=== PATIENT | female | born 1985 | race Caucasian/White ===

== ENCOUNTER 2016-07-15 05:29 | Day surgery (SDC) | payer BC ==
[2016-07-12 07:21] LABS: WBC (NOT ORDERED) (RFLEX) 0 (0-5)
[2016-07-12 08:35] LABS: CALCIUM, SERUM 8.8 MG/DL (8.5-10.4); CHLORIDE, SERUM 107 MMOL/L (96-112); CO2 (CARBON DIOXIDE) 26 MMOL/L (24-34); CREATININE 0.79 MG/DL (0.55-1.02); GFR AFRICAN AMERICAN 115 ML/MIN (>=60); GFR NON AFRICAN AMERICAN 99 ML/MIN (>=60); GLUCOSE, SERUM 78 MG/DL (60-99); POTASSIUM, SERUM 4.1 MMOL/L (3.5-5.3); SODIUM, SERUM 143 MMOL/L (135-148)
[2016-07-12 08:36] LABS: BUN (BLOOD UREA NITROGEN) 13 MG/DL (6-23)
[2016-07-12 10:30] LABS: ASCORBIC ACID (UR NOT ORDER) NEG (NEG); BILIRUBIN, URINE NEGATIVE (NEG); KETONE, URINE NEGATIVE (NEG); LEUKOCYTE ESTERASE(NOT OR NEG (NEG)
--- NOTE | ~2016-07-15 | OP ---
Record Of Operation [facility] [address] [place]. [address] NAME: ALEXIA KEENAN : 83 STATUS : [facility]#: [id number] AGE: 31 ADM/REG DATE : 07/15/16 MR#: [id number] REPORT SERV DATE: 07/15/16 DICTATED BY: [place] REYES DATE: 07/15/16 REPORT STATUS : Draft TRANSCRIBED BY: MODL DATE: 07/15/16 DATE OF PROCEDURE: 07/15/2016 PREOPERATIVE DIAGNOSIS: Left knee synovitis with patellar chondromalacia. POSTOPERATIVE DIAGNOSIS: Left knee synovitis with patellar chondromalacia, (chondromalacia grade 2/3) with multiple loose bodies. PROCEDURE PERFORMED: Left knee arthroscopy with extensive synovectomy, loose bodies removal, and debriding/thermal chondroplasty to the patella. SURGEON: [place] Reyes M.D. [employer] DEVELOPER: Nicholas Lam. ANESTHESIA: General. PROCEDURE IN DETAIL: The patient was clearly identified, after obtaining informed consent, she was brought to the operating room at [facility], where she was induced under general anesthesia, as her left lower extremity was prepped and draped in usual manner. This concluded, after an appropriate time-out, procedure was performed. KATELIN exsanguination was performed, tourniquet was elevated to 350 mmHg, and successfully tested. At which point, 30 mL of saline were instilled within the joint and anteromedial and anterolateral portals were formed. Arthroscopy begins revealing extensive synovitis anteriorly especially where there was internal impingement, this was all carefully debrided. Patellofemoral tracking was excellent. There was slight chondromalacia grade 2 to 3 at the undersurface of the patella more the lateral facet. ACL and PCL were intact. The menisci were intact. There were multiple loose bodies of cartilage floating through the joint which were removed. Assessing the undersurface of the patella at this point, a slight debriding chondroplasty was performed to remove large impending fragments that are to fall and then an ArthroCare Flow 50 wand was then utilized to perform a thermal chondroplasty which was protected to avoid any temperature over 45 degrees centigrade with excellent effect. The area was then inspected. The area was then copiously irrigated with outflow cannula and drained. At which point, the portals were closed. Ropivacaine and morphine were instilled in the joint at which point, the leg was then carefully cleansed and dressed. The patient was allowed to awaken and was transferred to the recovery room in stable condition having tolerated the procedure well. ESTIMATED BLOOD LOSS: 5 mL. FLUIDS: 1000. TOURNIQUET TIME: Approximately 30 minutes. PATHOLOGY: Sent specimen. Record Of Operation [place] [id number] [facility] [place]. [address] NAME: ALEXIA KEENAN : 83 STATUS : [facility]#: [id number] AGE: 31 ADM/REG DATE : 07/15/16 MR#: [id number] REPORT SERV DATE: 07/15/16 DICTATED BY: [place] REYES DATE: 07/15/16 REPORT STATUS : Draft TRANSCRIBED BY: NATE DATE: 07/15/16 MICROBIOLOGY: None. COMPLICATIONS: None. SPONGE AND NEEDLE COUNTS: Reportedly correct. ANTIBIOTICS: Administered appropriately preoperatively and ordered to be discontinued at the conclusion of the case. BATSHEVA/NATE [place] Reyes M.D. / [id number] CC: Carl Loaiza D.O.
[~2016-07-15 05:29] MED LIST: BENTYL10 PO; GLUMETZA500 MG PO; NECON PO
== END 2016-07-15 12:37 | disposition home or self-care (01) ==
LOC: SDC 05:29
PROVIDERS: Orthopaedic Surgery
PROC: 0SBD4ZZ Excision of Left Knee Joint, Percutaneous Endoscopic Approach (ICD-10-PCS; principal; 2016-07-15 06:45)
DX: M22.42 Chondromalacia patellae, left knee (principal); M65.862 Other synovitis and tenosynovitis, left lower leg; G43.909 Migraine, unspecified, not intractable, without status migrainosus; K21.9 Gastro-esophageal reflux disease without esophagitis; K58.9 Irritable bowel syndrome, unspecified; E66.9 Obesity, unspecified; Z79.899 Other long term (current) drug therapy; Z88.2 Allergy status to sulfonamides; Z90.89 Acquired absence of other organs; Z90.49 Acquired absence of other specified parts of digestive tract; Z98.890 Other specified postprocedural states; Z87.442 Personal history of urinary calculi; Z82.49 Family history of ischemic heart disease and other diseases of the circulatory system; Z68.37 Body mass index [BMI] 37.0-37.9, adult; Z88.5 Allergy status to narcotic agent
CPT/HCPCS: 80048; 81001; 84703; 88304; A9270-GY; J0690; J1170; J1200; J2250; J2274; J2405; J2710; J2795; J3010